=== PATIENT | female | born 1960 | race Caucasian/White ===

== ENCOUNTER → 2017-02-08 | Outpatient (CLI) | payer BC ==
[~2017-02-08] MED LIST: EST1.25T
[2017-02-08 08:13] LABS: ALBUMIN 4.2 GM/DL (3.2-4.5); BILIRUBIN,DIRECT 0.2 MG/DL (0.0-0.3); BILIRUBIN,INDIRECT 0.2 MG/DL; BILIRUBIN,TOTAL 0.4 MG/DL (0.1-1.0); ICTERUS 0.4 (-100-1.9); TOTAL PROTEIN 7.4 GM/DL (6.4-8.2)
--- NOTE | 2017-02-08 11:16 | Diagnostic Imaging Report ---
Ultrasound of the liver. INDICATION: Followup neoplasm of the right choroid. FINDINGS: The visualized portions of the pancreas appear unremarkable. There are portions of the pancreas obscured by bowel gas. The liver is fairly homogeneous with no focal lesion. Hepatopedal flow in the portal vein is demonstrated. The CBD is 4 mm in caliber. The gallbladder demonstrates no stones or wall thickening. Sonographic Rodriguez sign is reportedly negative. The right kidney is 9.7 CM in length with no hydronephrosis or focal lesion. No fluid collection in the upper right abdomen seen. IMPRESSION: Unremarkable exam. Dictated by: Dictated on workstation # [id number]
== END ==
LOC: LAB 07:27
PROVIDERS: ATTEND Ophthalmology
DX: C69.31 Malignant neoplasm of right choroid (principal)
CPT/HCPCS: 36415; 76705; 80076; 82977

== ENCOUNTER → 2017-11-16 | Outpatient (CLI) | payer BC ==
[2017-11-16 07:20] LABS: BILIRUBIN,DIRECT 0.2 MG/DL (0.0-0.3); BILIRUBIN,INDIRECT 0.4 MG/DL; BILIRUBIN,TOTAL 0.6 MG/DL (0.1-1.0); TOTAL PROTEIN 6.8 GM/DL (6.4-8.2)
--- NOTE | 2017-11-16 09:00 | Diagnostic Imaging Report ---
INDICATION: Melanoma of the right eye. FINDINGS: The liver is normal in size at 16 cm. No discrete liver mass is identified. Gallbladder is without stones or sludge. No wall thickening or biliary ductal dilatation is identified. The extrahepatic bile duct was obscured. The pancreas was obscured. The right kidney is unremarkable. There is no ascites. IMPRESSION: Unremarkable liver ultrasound. No liver mass is detected. Dictated by: Dictated on workstation # [id number]
== END ==
LOC: RAD 06:34
PROVIDERS: ATTEND Ophthalmology
DX: C69.31 Malignant neoplasm of right choroid (principal)
CPT/HCPCS: 36415; 76705; 80076; 82977

== ENCOUNTER → 2018-10-31 | Outpatient (CLI) | payer BC ==
[2018-10-31 07:20] LABS: ALBUMIN 3.9 GM/DL (3.2-4.5); BILIRUBIN,DIRECT 0.2 MG/DL (0.0-0.3); BILIRUBIN,INDIRECT 0.3 MG/DL; BILIRUBIN,TOTAL 0.5 MG/DL (0.1-1.0); TOTAL PROTEIN 6.7 GM/DL (6.4-8.2)
--- NOTE | 2018-10-31 08:57 | Diagnostic Imaging Report ---
PROCEDURE: US Hepatic (Liver). TECHNIQUE: Multiple real-time grayscale images were obtained over the right upper quadrant in various projections. INDICATION: Melanoma of the right eye. The liver is normal in size at 15 cm. No discrete liver mass is identified. The portal vein is patent and shows normal direction of flow. Gallbladder is without stones or sludge. No wall thickening or biliary duct dilatation is seen. The pancreas is obscured by bowel gas. Right kidney is unremarkable. There is no ascites. IMPRESSION: Unremarkable hepatic ultrasound. Dictated by: Dictated on workstation # [id number]
== END ==
LOC: RAD 06:44
PROVIDERS: ATTEND Ophthalmology
DX: C69.31 Malignant neoplasm of right choroid (principal)
CPT/HCPCS: 36415; 76705; 80076; 82977

== ENCOUNTER → 2019-05-07 | Outpatient (CLI) | payer BC ==
--- NOTE | 2019-05-07 17:16 | Diagnostic Imaging Report ---
INDICATION: Pain and swelling to the left knee. Time of exam: 5:08 p.m. Three views of the left knee were obtained. FINDINGS: Alignment is normal. There is some medial compartmental joint space narrowing. The articular surfaces are smooth. No fracture, dislocation, or effusion is detected. IMPRESSION: Mild degenerative changes. No acute bony abnormality is detected. Dictated by: Dictated on workstation # [id number]
--- NOTE | 2019-05-07 17:18 | Diagnostic Imaging Report ---
INDICATION: Right wrist pain. TIME OF EXAM: 4:55 p.m. Three views of the right wrist were obtained. FINDINGS: The distal radius and ulna are intact. There are degenerative changes at the triscaphe and first CMC joints, with joint space narrowing, sclerosis, and subchondral cyst formation. Carpus is otherwise unremarkable. Visualized metacarpals are intact. No fractures are seen. IMPRESSION: Degenerative changes at the carpus, as described. No acute bony abnormality is detected. Dictated by: Dictated on workstation # [id number]
== END ==
LOC: RAD 16:16
PROVIDERS: ATTEND Family Medicine
DX: M19.031 Primary osteoarthritis, right wrist (principal); M17.11 Unilateral primary osteoarthritis, right knee
CPT/HCPCS: 73110; 73562

== ENCOUNTER → 2020-04-30 | Outpatient (CLI) | payer BC ==
--- NOTE | 2020-04-30 07:48 | Diagnostic Imaging Report ---
Indication: Malignant right choroidal neoplasm PA and lateral views of the chest are obtained with comparison made to study of 11/04/2015. FINDINGS: Heart size and pulmonary vascularity are within normal limits, and the lungs are clear, bilaterally. IMPRESSION: Unremarkable chest. Dictated by: Dictated on workstation # [id number]
--- NOTE | 2020-04-30 07:52 | Diagnostic Imaging Report ---
PROCEDURE: US Hepatic (Liver). TECHNIQUE: Multiple real-time grayscale images were obtained over the right upper quadrant in various projections. INDICATION: Malignant neoplasm of right choroid Liver measures 16 cm in length without evidence of focal lesion. Hepatopetal flow is seen within the main portal vein. Gallbladder has a normal appearance without evidence of intraluminal filling defect or wall thickening. There is no evidence of biliary ductal dilatation. Abdominal aorta and pancreas are largely obscured by overlying bowel. No right renal, inferior vena caval or peritoneal abnormality is identified. No free fluid is seen. IMPRESSION: Unremarkable right upper quadrant abdominal ultrasound. Dictated by: Dictated on workstation # [id number]
[2020-04-30 08:09] LABS: BILIRUBIN,DIRECT 0.2 MG/DL (0.0-0.3); BILIRUBIN,INDIRECT 0.2 MG/DL; BILIRUBIN,TOTAL 0.4 MG/DL (0.1-1.0); TOTAL PROTEIN 7.1 GM/DL (6.4-8.2)
== END ==
LOC: RAD 06:46
DX: C69.31 Malignant neoplasm of right choroid (principal)
CPT/HCPCS: 36415; 71046; 76705; 80076; 82977

== ENCOUNTER → 2020-07-02 | Outpatient (CLI) | payer BC ==
--- NOTE | 2020-07-02 08:53 | Diagnostic Imaging Report ---
INDICATION: Pain in the metatarsal phalangeal joints. Time of exam 8:19 AM 3 views of the right foot were obtained. Metatarsals are intact. Phalanges are intact. MTP joints are unremarkable apart from mild narrowing of the 1st MTP joint. Midfoot and hindfoot are unremarkable. No fractures are seen. There is enthesopathy at the Achilles insertion of the posterior calcaneus. IMPRESSION: No acute bony abnormality is detected. Dictated by: Dictated on workstation # [id number]
== END ==
LOC: RAD 08:05
PROVIDERS: ATTEND Internal Medicine
DX: M25.571 Pain in right ankle and joints of right foot (principal)
CPT/HCPCS: 73630

== ENCOUNTER → 2020-07-07 | Outpatient (CLI) | payer BC ==
--- NOTE | 2020-07-07 10:27 | Diagnostic Imaging Report ---
EXAMINATION: Right knee at 9:24 AM. INDICATION: Knee pain. TECHNIQUE/COMPARISON: Three views of the right knee were obtained. There are no prior studies available for comparison. FINDINGS: There is no fracture, dislocation, or acute bony abnormality evident. The knee joint is fairly well maintained. The soft tissues are unremarkable. IMPRESSION: There is no evidence for an acute bony abnormality. Dictated by: Dictated on workstation # [id number]
== END ==
LOC: RAD 09:06
PROVIDERS: ATTEND Physician Assistant
DX: M25.561 Pain in right knee (principal)
CPT/HCPCS: 73562

== ENCOUNTER → 2021-04-19 | Outpatient (CLI) | payer BC ==
[2021-04-19 07:47] LABS: ALBUMIN 3.9 GM/DL (3.2-4.5); BILIRUBIN,DIRECT 0.1 MG/DL (0.0-0.3); BILIRUBIN,INDIRECT 0.2 MG/DL; BILIRUBIN,TOTAL 0.3 MG/DL (0.1-1.0); TOTAL PROTEIN 6.9 GM/DL (6.4-8.2)
--- NOTE | 2021-04-19 08:02 | Diagnostic Imaging Report ---
INDICATION: Malignant neoplasm of right choroid. PA and lateral views of the chest obtained with comparison made to study of 04/30/2020. FINDINGS: Heart size and pulmonary vascularity are within normal limits, and the lungs are clear, bilaterally. IMPRESSION: Unremarkable chest. Dictated by: Dictated on workstation # [id number]
--- NOTE | 2021-04-19 11:45 | Diagnostic Imaging Report ---
PROCEDURE: US Hepatic (Liver). TECHNIQUE: Multiple real-time grayscale images were obtained over the right upper quadrant in various projections. INDICATION: Melanoma. Malignant neoplasm of right choroid. COMPARISON: 04/30/2020 FINDINGS: Only a small portion of the pancreatic head is visible but most of the pancreas is obscured by bowel gas. Imaged portions of the aorta and IVC are unremarkable. The liver measures 14 cm in size. No focal hepatic lesions are seen. Echogenicity is normal. There is no biliary dilatation. The main portal vein is hepatopetal. The common bile duct is not seen. The gallbladder wall is not thickened. No stones are seen. There is no pericholecystic fluid. Sonographic Rodriguez sign is negative. The kidney measures 11.4 cm in length. There is no hydronephrosis. No renal calculi are seen. No free fluid is seen. IMPRESSION: 1. No hepatic abnormality identified. Dictated by: Dictated on workstation # [id number]
== END ==
LOC: RAD 07:00
PROVIDERS: ATTEND Ophthalmology
DX: C69.31 Malignant neoplasm of right choroid (principal)
CPT/HCPCS: 36415; 71046; 76705; 80076; 82977

== ENCOUNTER → 2022-03-28 | Outpatient (CLI) | payer BC ==
--- NOTE | 2022-03-28 14:22 | Diagnostic Imaging Report ---
PROCEDURE: US Thyroid. TECHNIQUE: Multiple real-time grayscale images were obtained of the thyroid in various projections. INDICATION: Enlarged thyroid with abnormal lab values. FINDINGS: The right lobe measures 6 x 2.2 x 1.9 cm. Left lobe measures 5 x 1.2 x 1.4 cm. The right lobe is virtually replaced with multiple nodules, the largest of which are hypoechoic with calcification measuring upwards of 3 x 2 x 2 cm. Smaller nodules measuring approximately 1 cm are seen which are hypoechoic. Left lobe shows two small subcentimeter hypoechoic areas. These are well circumscribed without calcification measuring 6 x 3 x 5 mm and 3 x 2 x 3 mm. There is a nodule in the isthmus, which is hypoechoic, oval, and smooth measuring 7 x 5 x 8 mm. IMPRESSION: There is a multinodular appearance. The largest nodule within the right lobe inferiorly containing calcification is considered moderately suspicious. Would consider ultrasound-guided biopsy. TI-RADS 4. Dictated by: Dictated on workstation # [id number]
== END ==
LOC: RAD 11:00
PROVIDERS: ATTEND Internal Medicine
DX: E04.1 Nontoxic single thyroid nodule (principal)
CPT/HCPCS: 76536

== ENCOUNTER → 2022-04-04 | Outpatient (CLI) | payer BC ==
[~2022-04-04] VITALS: Ht 160 cm; Wt 82.3 kg
[~2022-04-04] MED LIST changes: +LIDOCAINE 1% INJ 50 ML (XYLOCAINE) VIAL IJ ONE
[2022-04-04 07:31] LABS: ALBUMIN 4.1 GM/DL (3.2-4.5)
[2022-04-04 07:34] LABS: TOTAL PROTEIN 7.1 GM/DL (6.4-8.2)
[2022-04-04 07:36] LABS: BILIRUBIN,TOTAL 0.4 MG/DL (0.1-1.0)
[2022-04-04 07:39] LABS: BILIRUBIN,DIRECT 0.2 MG/DL (0.0-0.3); BILIRUBIN,INDIRECT 0.2 MG/DL
--- NOTE | 2022-04-04 08:14 | Diagnostic Imaging Report ---
INDICATION: MALIGNANT NEOPLASM OF RT CHOROID. TECHNIQUE: Two view chest 8:07 AM CORRELATION STUDY: 04/19/2021 FINDINGS: The heart size, mediastinal configuration and pulmonary vasculature are within normal limits. The lungs are clear with no consolidating infiltrate. There is no significant pleural effusion or pneumothorax. Visualized osseous structures are unremarkable. IMPRESSION: 1. Negative for acute abnormality of the chest. Dictated by: Dictated on workstation # [id number]
--- NOTE | 2022-04-04 08:21 | Diagnostic Imaging Report ---
PROCEDURE: US Hepatic (Liver). INDICATION: MALIGNANT NEOPLASM OF RIGHT CHOROID-MELANOMA TECHNIQUE: Multiple grayscale sonographic images were obtained of the right upper quadrant of the abdomen. CORRELATION STUDY: 04/19/2021 FINDINGS: LIVER: There is uniform echotexture within the visualized portions of the liver. The main portal vein is patent and with normal direction of flow. Liver length 15.5 cm. GALLBLADDER: Single echogenic, nonmobile foci may reflect a small polyp. No definitive shadowing gallstones. Gallbladder wall thickness, within normal limits at 0.2 cm. COMMON BILE DUCT: Nondilated at 0.5 cm. AORTA/IVC: Not well visualized. PANCREAS: Visualized portions appearing unremarkable. RIGHT KIDNEY: 10.5 x 4.6 x 4.9 cm. No hydronephrosis. OTHER: None. IMPRESSION: 1. Probable small gallbladder polyp. 2. Otherwise, unremarkable right upper quadrant abdominal ultrasound. Dictated by: Dictated on workstation # [id number]
== END ==
LOC: RAD 06:57
PROVIDERS: ATTEND Ophthalmology
DX: C69.31 Malignant neoplasm of right choroid (principal)
CPT/HCPCS: 36415; 71046; 76705; 80076

== ENCOUNTER → 2022-04-04 | Outpatient (CLI) | payer BC ==
[~2022-04-04] MED LIST changes: -LIDOCAINE 1% INJ 50 ML (XYLOCAINE) VIAL IJ ONE
--- NOTE | 2022-04-04 15:55 | Diagnostic Imaging Report ---
INDICATION: Right thyroid nodule. Patient presents for ultrasound-guided fine-needle aspiration and biopsy. DETAILS OF THE PROCEDURE: The patient was brought to the procedure room and placed on the table in the supine position. Ultrasound imaging of the neck was performed to evaluate for an appropriate entry site. The neck was then prepped and draped in the usual sterile fashion. A small amount of 1% lidocaine was utilized for local anesthesia. A total of 4 passes was made into the mixed solid and cystic mass in the lower pole of the right lobe of the thyroid utilizing 25-gauge needles and fine-needle aspiration technique. A single pass was made with a Rotex needle and a Rotex biopsy was performed. Hemostasis was obtained. The patient tolerated the procedure well and left the Department in stable condition. IMPRESSION: Successful ultrasound guided fine needle aspiration and Rotex biopsy of the complex mixed solid and cystic nodule in the right lobe of the thyroid. Pathology results are currently pending. Dictated by: Dictated on workstation # [id number]
== END ==
LOC: RAD 06:56
PROVIDERS: ATTEND Internal Medicine
DX: E04.1 Nontoxic single thyroid nodule (principal)
CPT/HCPCS: 10005

== ENCOUNTER 2022-04-27 06:21 | Outpatient (CLI) | payer BC ==
[~2022-04-27] VITALS: Ht 160 cm; Wt 80.3 kg
[2022-04-27] MEDS ORDERED: ASPI-999 PO (08:38)
== END 2022-04-27 08:40 | disposition home or self-care (01) ==
LOC: PREOP 06:21
PROVIDERS: ATTEND Surgery
DX: Z01.818 Encounter for other preprocedural examination (principal)

== ENCOUNTER 2022-05-04 11:14 | Day surgery (SDC) | payer BC ==
[~2022-05-04] VITALS: Ht 160 cm; Wt 80.3 kg
[~2022-05-04 11:14] MED LIST changes: +ASPI-999 PO
[2022-05-04] MEDS ORDERED: LACTATED RINGERS 1,000 ML IV STA (11:22)
[2022-05-04] MEDS ORDERED: LACTATED RINGERS 1,000 ML IV ONE (11:28)
[2022-05-04 11:30] VITALS: BP 137/75
[2022-05-04] MEDS ORDERED: HURRICAINE EXT TUBE (BENZOCAINE) XX PRN (11:30)
[2022-05-04] MEDS ORDERED: LIDOCAINE JELLY 2% 6 ML SYRINGE MM PRN (11:30)
[2022-05-04] MEDS ORDERED: PROPOFOL INJECTION 50 ML IV ONE (13:38)
[2022-05-04] MEDS ORDERED: MIDAZOLAM 2 MG/2 ML (VERSED) VIAL ONE (13:38)
[2022-05-04 14:06] VITALS: BP 128/64
[2022-05-04 14:11] VITALS: BP 123/63
[2022-05-04 14:16] VITALS: BP 110/62
--- NOTE | 2022-05-04 14:16 | Progress Note-Pre Operative ---
Pre-Operative Progress Note Date of Available H&P: May 04, 2022 Date H&P Reviewed: May 04, 2022 Time H&P Reviewed: 12:00 History & Physical: No changes noted Pre-Operative Diagnosis: GERD, screening o CELIA NOLASCO MD May 04, 2022 14:16
[2022-05-04] MEDS ORDERED: OMEP40CA6 PO (14:17)
--- NOTE | 2022-05-04 14:17 | Discharge Inst-Surgical ---
D/C Lap Instructions-KIDO New, Converted, or Re-Newed RX: RX on Chart Follow Up Activity as tolerated High Fiber Diet 25g or more per day Avoid Alcohol, Caffeine, Spicy [place] and Acid foods. Drink 64 fluid oz or more of fluids per day. Symptoms to Report: Fever over 101 degree F, Nausea/Vomiting If any problems/questions: Contact your physician or go to Emergency Room CELIA NOLASCO MD May 04, 2022 14:17
--- NOTE | 2022-05-04 14:19 | Progress Note-Post Operative ---
Post-Operative Progess Note Surgeon (s)/[employer] Handlers (s) Surgeon CELIA NOLASCO MD Pick[employer] Material Handlers: none Pre-Operative Diagnosis GERD, screening colo Post-Operative Diagnosis reflux esophagitis(grade B), small-moderate HH(2.5cm), mild gastritis. mild chronic stage 2 ext and int hemorrhoids. Procedure & Operative Findings Date of Procedure 05/04/22 Procedure Performed/Findings EGD with bx. Colonoscopy Anesthesia Type mac Estimated Blood Loss Estimated blood loss (mL): minimal Specimens/Packing Specimens Removed ge jxn, antrum CELIA NOLASCO MD May 04, 2022 14:19
[2022-05-04 14:20] VITALS: BP 118/62
[2022-05-04] MEDS ORDERED: ONDANSETRON 4 MG (ZOFRAN) ORAL DISSOLVE TAB PO PRN (14:30)
[2022-05-04] MEDS ORDERED: ONDANSETRON 4 MG/2 ML (SDV) Z0FRAN IVP PRN (14:30)
[2022-05-04 14:50] VITALS: BP 121/68
--- NOTE | 2022-05-04 15:45 | Anesthesia-General Post-Op ---
MAC Patient Condition Mental Status/LOC: Same as Preop Cardiovascular: Satisfactory Nausea/Vomiting: Absent Respiratory: Satisfactory Pain: Controlled Complications: Absent Post Op Complications Complications None Follow Up Care/Instructions Patient Instructions None needed. Anesthesiology Discharge Order Discharge Order Patient was seen after the procedure and she was doing well, no complaints, stable vital signs, no apparent adverse anesthesia problems. No complications reported per nursing. EDER ZHAO DO May 04, 2022 15:45
--- NOTE | 2022-05-04 19:46 | OPERATIVE REPORT ---
DATE OF SERVICE: 05/04/2022 ATTENDING PRIMARY CARE PHYSICIAN: Dr. Ildefonso Cuellar. PREOPERATIVE DIAGNOSIS: Screening colonoscopy and positive Cologuard test and gastroesophageal reflux disease. POSTOPERATIVE DIAGNOSIS: Reflux esophagitis, [place] grade B, small to moderate size hiatal hernia approximately 2.5 cm in size, mild gastritis, chronic stage II external and internal hemorrhoids. Remainder of the rectum and colon were normal. PROCEDURE: EGD with biopsy, colonoscopy. SURGEON: Celia Nolasco MD. ANESTHESIA: Monitored anesthesia care. ESTIMATED BLOOD LOSS: Minimal. FINDINGS: Same as postoperative diagnosis. DISPOSITION: The patient tolerated the procedure well. INDICATIONS: The patient is a 61-year-old female referred over to us for a screening colonoscopy. She also had a recent Cologuard test, which was found to be positive. She does not report any major issues with diarrhea nor constipation as well as no red blood per rectum nor any dark tarry stools. 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 She also has noticed epigastric and substernal burning sensation as well as crampy pain. DESCRIPTION OF PROCEDURE: The patient was brought to the endoscopy suite, and laid in the left lateral decubitus position. After adequate IV pain and sedative medications and monitored anesthesia care, the mouthpiece was applied. The endoscope was then placed in the mouth, visualizing the pharynx and hypopharyngeal region. Vocal cords identified and appeared to be normal. The endoscope was then gently intubated into the esophageal opening and esophagus insufflated. The endoscope was then advanced through the first, second and third portion of esophagus at the level of the GE junction, a reflux esophagitis, [place] grade B identified. No ulcers or strictures identified. A biopsy was taken with forceps with visualization of good hemostasis. The endoscope was then advanced into the stomach and endoscope retroflexed, visualizing a small to moderate size hiatal hernia approximately 2.5 cm in size. There was a mild gastritis. No formal ulcers, polyps, or any neoplasms identified. The endoscope was then advanced to the pylorus and first and second portion of the duodenum, which appeared normal. The endoscope was then slowly withdrawn while taking a second look and suctioning of residual air with no additional findings. A digital rectal examination was performed, which revealed mild chronic stage II external and internal hemorrhoids, not actively edematous nor inflamed and no bleeding. Normal sphincter tone was felt and there were no palpable masses. The endoscope was then intubated to the anus and rectum gently insufflated. The endoscope was then advanced through the valves of [place] of the rectum with no polyps or any neoplasms identified. Through the sigmoid colon, no diverticulosis identified. We then proceeded through the remainder of the descending, transverse and ascending colon to the cecum, which were normal. There were no polyps or any neoplasms identified throughout the colon or rectum. The endoscope was then slowly withdrawn with taking a second look and suctioning of residual air with no additional findings. The patient tolerated the procedure well. We will recommend the necessary lifestyle and dietary accommodation including small and more frequent meals, avoidance of eating at night as well as head elevation while lying supine. We will also start her on omeprazole 40 mg daily. We will also recommend a high-fiber diet with a fiber supplement, which should equal or exceed 25 grams daily to promote soft consistency stools on a daily basis. She does not have any family history of colon cancer and if she is asymptomatic, she does not need another colonoscopy for another 10 years. Job ID: [id number] DocumentID: [id number] Dictated Date: 05/04/2022 14:08:14 Housekeeper Home Date: 05/04/2022 19:45:27 Dictated By: CELIA NOLASCO MD
== END 2022-05-04 15:00 | disposition home or self-care (01) ==
LOC: ENDO 11:14
PROVIDERS: ATTEND Surgery
DX: Z12.11 Encounter for screening for malignant neoplasm of colon (principal); K21.00 Gastro-esophageal reflux disease with esophagitis, without bleeding; K44.9 Diaphragmatic hernia without obstruction or gangrene; K64.1 Second degree hemorrhoids; K29.70 Gastritis, unspecified, without bleeding; K22.70 Barrett's esophagus without dysplasia; Z85.820 Personal history of malignant melanoma of skin; Z79.82 Long term (current) use of aspirin; K64.8 Other hemorrhoids

== ENCOUNTER → 2023-04-13 | Outpatient (CLI) | payer BC ==
[~2023-04-13] MED LIST changes: +OMEP40CA6 PO
--- NOTE | 2023-04-13 20:14 | Diagnostic Imaging Report ---
INDICATION: Routine screening. COMPARISON: Prior mammograms from 02/08/2022 and 02/03/2021. EXAMINATION: 2D and 3D bilateral screening mammography was performed with CAD. The current study was also evaluated with a Computer Aided Detection (CAD) system. FINDINGS: Scattered fibroglandular densities are identified, bilaterally. The parenchymal pattern is stable. No mass or malignant-appearing microcalcifications are seen. Axillae are unremarkable. IMPRESSION: No mammographic features suspicious for malignancy are identified. Dictated by: Dictated on workstation # [id number]
== END ==
LOC: RAD 10:33
PROVIDERS: ATTEND Internal Medicine
DX: Z12.31 Encounter for screening mammogram for malignant neoplasm of breast (principal); Z00.01 Encounter for general adult medical examination with abnormal findings; K22.70 Barrett's esophagus without dysplasia; B35.6 Tinea cruris
CPT/HCPCS: 77063; 77067

== ENCOUNTER → 2023-04-28 | Outpatient (CLI) | payer BC ==
[2023-04-28 15:55] LABS: ALBUMIN 4.1 GM/DL (3.2-4.5); BILIRUBIN,DIRECT 0.1 MG/DL (0.0-0.3); BILIRUBIN,INDIRECT 0.3 MG/DL; BILIRUBIN,TOTAL 0.4 MG/DL (0.1-1.0); TOTAL PROTEIN 6.9 GM/DL (6.4-8.2)
--- NOTE | 2023-04-28 16:50 | Diagnostic Imaging Report ---
INDICATION: Cancer screening follow-up. COMPARISONS: 04/04/2022. FINDINGS: PA and lateral films of the chest show the cardiac contour to be normal. There are some coarse interstitial opacities with some central peribronchial cuffing. No consolidations are seen. There is no effusion or pneumothorax. There are some early bronchiectatic changes developing in the lower lobes. Soft tissues and bony thorax are unremarkable. IMPRESSION: 1. Some mild coarse interstitial opacities in both lungs with some prominent central lung markings. There are some early central and lower lobe bronchiectatic changes. 2. Apart from minimal left basilar atelectatic infiltrates, there are no confluent consolidations. There is no effusion or pneumothorax. Dictated by: Dictated on workstation # [id number]
== END ==
LOC: RAD 15:28
PROVIDERS: ATTEND Ophthalmology
DX: C69.31 Malignant neoplasm of right choroid (principal); J47.9 Bronchiectasis, uncomplicated
CPT/HCPCS: 36415; 71046; 80076; 82977

== ENCOUNTER → 2023-04-28 | Outpatient (CLI) | payer BC ==
[~2023-04-28] MED LIST changes: +HOLD METFORMIN - RECEIVED CONTRAST 20 ML VIAL IV SCH; +IOHEXOL 350 MG/ML 100 ML (OMNIPAQUE 350) VIAL IV ONE; +NS 100 ML (IVPB) BAG IV ONE
[2023-04-28 15:53] LABS: CREATININE SERUM 0.85 MG/DL (0.60-1.30)
--- NOTE | 2023-04-28 16:49 | Diagnostic Imaging Report ---
PROCEDURE: CT abdomen and pelvis with contrast. TECHNIQUE: Multiple contiguous axial images were obtained through the abdomen and pelvis after administration of intravenous contrast. Auto Exposure Controls were utilized during the CT exam to meet ALARA standards for radiation dose reduction. All CT scans use one or more of the following dose optimizing techniques: automated exposure control, MA and/or KvP adjustment based on patient size and exam type or iterative reconstruction. INDICATION: 62-year-old with severe lower abdominal pain. COMPARISONS: None FINDINGS: The lung bases are clear. Cardiac contour is normal. Liver shows uniform attenuation. There is no intraparenchymal mass or ductal dilatation. Gallbladder, spleen, GE junction, stomach and duodenal sweep are unremarkable. Pancreas shows sharp margins. Adrenals are normal. Kidneys appear normal size, position contour with symmetrical perfusion of contrast. There are some prominent left renal pelvic cysts with small renal pelvic cyst on the right. There is no evidence of hydronephrosis or hydroureter. Both ureters are seen intermittently through their course and appear unremarkable. Bladder is nondistended. Few pelvic phleboliths are seen. There is surgical absence of the uterus. Nonopacified loops small bowel are unremarkable. Appendix is normal. There is some fatty mucosal infiltration in the proximal colon, otherwise the colon is mostly decompressed. Few pelvic phleboliths are seen. There is no free air, free fluid or adenopathy. Visualized vasculature shows normal caliber of aorta, iliac and femoral arteries with normal origin of the visceral arteries. Bone windows show moderate degenerative changes of lumbosacral spine. There is a vacuum disc with loss of disc space height at L4-L5 and L5-S1. There is pars defect involving the inferior articular processes of L5. IMPRESSION: There is no evidence of cholecystitis, appendicitis or obstructive uropathy. No areas peritoneal inflammation seen. Additional nonemergent findings as described above. Dictated by: Dictated on workstation # [id number]
== END ==
LOC: RAD 15:45
PROVIDERS: ATTEND Internal Medicine
DX: R10.32 Left lower quadrant pain (principal)
CPT/HCPCS: 36415; 74177; 82565; 84520

== ENCOUNTER → 2023-05-08 | Outpatient (CLI) | payer BC ==
[~2023-05-08] MED LIST changes: -HOLD METFORMIN - RECEIVED CONTRAST 20 ML VIAL IV SCH; -IOHEXOL 350 MG/ML 100 ML (OMNIPAQUE 350) VIAL IV ONE; -NS 100 ML (IVPB) BAG IV ONE
--- NOTE | 2023-05-08 15:53 | Diagnostic Imaging Report ---
PROCEDURE: US Hepatic (Liver). TECHNIQUE: Multiple real-time grayscale images were obtained over the right upper quadrant in various projections. INDICATION: Choroidal melanoma. The liver is normal in size at 16.4 cm. Portal vein is patent and shows normal direction of flow. No liver mass is identified. Gallbladder is without stones or sludge. There is no wall thickening or biliary ductal dilatation. Pancreas is unremarkable. Aorta and IVC were obscured by bowel gas. Right kidney is 9.6 cm in length. No calculi or hydronephrosis is identified. There is no ascites. IMPRESSION: Unremarkable hepatic ultrasound. Dictated by: Dictated on workstation # [id number]
== END ==
LOC: RAD 09:16
PROVIDERS: ATTEND Ophthalmology
DX: C69.31 Malignant neoplasm of right choroid (principal)
CPT/HCPCS: 76705